=== PATIENT | female | born 1975 | race Caucasian/White ===

== ENCOUNTER → 2021-07-27 09:41 | Outpatient (BNVA) | payer OTHER, MEDICAID, SELFPAY | PROVIDERS: PCP Student in an Organized Health Care Education/Training Program; Visit Provider Internal Medicine Rheumatology | DX: M19.90 Unspecified osteoarthritis, unspecified site (principal); M79.7 Fibromyalgia; Z79.899 Other long term (current) drug therapy; Z11.59 Encounter for screening for other viral diseases; Z11.1 Encounter for screening for respiratory tuberculosis; Z82.61 Family history of arthritis; Z71.85 Encounter for immunization safety counseling; F17.200 Nicotine dependence, unspecified, uncomplicated | CPT/HCPCS: 99204 ==

== ENCOUNTER 2021-07-27 13:13 | Outpatient (CLI) | payer OTHER, MEDICAID, SELFPAY ==
--- NOTE | 2021-07-27 13:37 | XR_ITS ---
WS: [id number] Exam: XR chest 2V* [id number] Date/Time of Exam: 07/27/2021 1:42 PM Reason For Exam: Z79.899 - Other intermediate frame tender (current) drug therapy Findings: The lungs are clear and fully expanded. Costophrenic angles are sharp. No infiltrates. Bronchovascula r relief appears normal. Cardiac silhouette is unremarkable. Bony elements are intact. XR/XR chest 2V* [id number] IMPRESSION: Unremarkable chest radiograph.
--- NOTE | 2021-07-27 13:37 | XR_ITS ---
WS: [id number] Exam: XR hand RT min 3V* [id number] Date/Time of Exam: 07/27/2021 1:42 PM Reason For Exam: Z79.899 - Other long term acute care registered nurse (current) drug therapy Findings: No fractures, soft tissue swelling, or unusual calcifications are noted. The hand shows normal bony alignment. There is no irregularity of the bony architecture. XR/XR hand RT min 3V* [id number] IMPRESSION: Normal right hand.
--- NOTE | 2021-07-27 13:37 | XR_ITS ---
WS: [id number] Exam: XR foot LT min 3V* [id number] Date/Time of Exam: 07/27/2021 1:42 PM Reason For Exam: Z79.899 - Other care home (current) drug therapy Findings: The foot was examined in multiple views and reveals no fractures or displacements of bone. No bony a nomalies are noted. The bony elements are in adequate alignment. The joint spaces are smooth and eq uidistant. XR/XR foot LT min 3V* [id number] IMPRESSION: Negative left foot.
--- NOTE | 2021-07-27 13:37 | XR_ITS ---
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 No soft tissue foreign bodies are seen. There are mild degenerative changes in the midfoot joints. XR/XR foot RT min 3V* [id number] IMPRESSION: 1. No fracture or dislocation. Minimal degenerative changes.
--- NOTE | 2021-07-27 13:37 | XR_ITS ---
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 The hand shows normal bony alignment. There is no irregularity of the bony architecture. XR/XR hand LT min 3V* [id number] IMPRESSION: Normal left hand.
[2021-07-27 14:33] LABS: Basophils # 0.1 10^3/uL (0.0-0.1); Basophils % 0.7 %; Eosinophils # 0.5 10^3/uL (0.0-0.8); Eosinophils % 6.4 %; Hematocrit 43.5 % (37.0-47.0); Lymphocytes # 1.8 10^3/uL (0.8-4.8); Lymphocytes % 24.9 %; Mean Corpuscular HGB Conc 32.2 g/dL (30.0-36.0); Mean Corpuscular Hemoglobin 30.7 pg (28.0-34.0); Mean Corpuscular Volume 95.4 fl (81-99); Mean Platelet Volume 10.9 fL (7.4-10.4); Monocytes # 0.6 10^3/uL (0.2-0.9); Monocytes % 7.6 %; Neutrophils # 4.34 10^3/uL (1.8-7.7); Neutrophils % 60.1 %; Nucleated Red Blood Cells % 0 %; Platelet Count 280 10^3/cmm (130-400); Red Blood Count 4.56 10^6/uL (4.1-5.3); White Blood Count 7.2 10^3/uL (4.0-10.0)
[2021-07-27 15:22] LABS: Hepatitis B Core AB, Total Non-Reactive (Nonreactive); Hepatitis B Surface Antigen Non-Reactive (Nonreactive)
[2021-07-27 15:58] LABS: Rheumatoid Factor < 10.0 IU/mL (0-14)
[2021-07-27 16:40] LABS: Hepatitis C Virus Antibody Non-Reactive (Nonreactive)
[2021-07-27 17:07] LABS: Alanine Aminotransferase 22 U/L (0-33); Albumin Level 4.2 g/dL (3.5-5.2); Alkaline Phosphatase 107 IU/L (35-105); Aspartate Amino Transferase 19 U/L (0-32); C Reactive Protein 0.8 mg/L (0.0-4.9); Globulin 2.8 g/dL (1.3-4.6); Glomerular Filtration Rate 53.2 mL/min (90-130); Total Bilirubin 0.2 mg/dL (0.15-1.2)
[2021-07-27 17:22] LABS: 25 Hydroxy Vitamin D 32 ng/mL (30-100)
[2021-07-28 14:32] LABS: Cyclic Citrullinated Peptide <16 UNITS
[2021-07-28 14:47] LABS: Erythrocyte Sedimentation Rate 6 mm/hr (0-15)
[2021-07-29 11:58] LABS: Anti-Nuclear Antibody Pattern Nuclear, Centromere; Anti-Nuclear Antibody Screen POSITIVE (NEGATIVE)
[2021-07-29 14:28] LABS: Quantiferon Mitogen 8.33 IU/mL; Quantiferon Nil 0.02 IU/mL; Quantiferon Plus TB1 0.19 IU/mL; Quantiferon TB Gold NEGATIVE (NEGATIVE)
== END 2021-07-27 13:14 | disposition home or self-care (01) ==
LOC: RAD 13:30
PROVIDERS: PCP Student in an Organized Health Care Education/Training Program; Visit Provider Internal Medicine Rheumatology
DX: M19.90 Unspecified osteoarthritis, unspecified site (principal); M79.7 Fibromyalgia; Z79.899 Other long term (current) drug therapy; Z11.59 Encounter for screening for other viral diseases; Z11.1 Encounter for screening for respiratory tuberculosis
CPT/HCPCS: 36415; 71046; 73130; 73630; 80076; 82306; 82565; 85025; 85651; 86038; 86140; 86200; 86431; 86480; 86704; 86803; 87340

== ENCOUNTER → 2021-08-04 11:20 | Outpatient (BNVA) | payer OTHER, MEDICAID, SELFPAY | PROVIDERS: PCP Student in an Organized Health Care Education/Training Program; Referring Provider Student in an Organized Health Care Education/Training Program; Visit Provider Specialist | DX: R51.9 Headache, unspecified (principal); M79.7 Fibromyalgia; R55 Syncope and collapse; F43.10 Post-traumatic stress disorder, unspecified; F60.3 Borderline personality disorder; M19.90 Unspecified osteoarthritis, unspecified site; Z71.85 Encounter for immunization safety counseling; F17.200 Nicotine dependence, unspecified, uncomplicated | CPT/HCPCS: 99204; 99205 ==

== ENCOUNTER → 2021-08-23 13:44 | Outpatient (BNVA) | payer OTHER, MEDICAID, SELFPAY | PROVIDERS: PCP Student in an Organized Health Care Education/Training Program; Referring Provider Specialist; Visit Provider Specialist | DX: R55 Syncope and collapse (principal); F17.200 Nicotine dependence, unspecified, uncomplicated | CPT/HCPCS: 95816 ==

== ENCOUNTER → 2021-11-29 09:47 | Outpatient (BNVA) | payer OTHER, MEDICAID, SELFPAY | PROVIDERS: PCP Student in an Organized Health Care Education/Training Program; Visit Provider Internal Medicine Rheumatology | DX: M15.9 Polyosteoarthritis, unspecified (principal); M35.9 Systemic involvement of connective tissue, unspecified; Z79.899 Other long term (current) drug therapy; R76.8 Other specified abnormal immunological findings in serum; M79.7 Fibromyalgia; Z71.85 Encounter for immunization safety counseling | CPT/HCPCS: 99214 ==

== ENCOUNTER 2021-11-29 10:40 | Outpatient (CLI) | payer OTHER, MEDICAID, SELFPAY ==
[2021-11-29 11:41] LABS: Basophils % 0.6 %; Eosinophils # 0.2 10^3/uL (0.0-0.8); Eosinophils % 2.6 %; Hematocrit 47.3 % (37.0-47.0); Hemoglobin 15.8 g/dL (11.5-15.3); Lymphocytes # 1.6 10^3/uL (0.8-4.8); Lymphocytes % 25.9 %; Mean Corpuscular HGB Conc 33.4 g/dL (30.0-36.0); Mean Corpuscular Hemoglobin 30.6 pg (28.0-34.0); Mean Corpuscular Volume 91.5 fl (81-99); Mean Platelet Volume 10.9 fL (7.4-10.4); Monocytes # 0.5 10^3/uL (0.2-0.9); Monocytes % 8.2 %; Neutrophils # 3.86 10^3/uL (1.8-7.7); Neutrophils % 62.2 %; Nucleated Red Blood Cells % 0 %; Platelet Count 282 10^3/cmm (130-400); Red Blood Count 5.17 10^6/uL (4.1-5.3); Red Cell Distribution Width 11.9 % (12.1-15.1); White Blood Count 6.2 10^3/uL (4.0-10.0)
[2021-11-29 11:47] LABS: Erythrocyte Sedimentation Rate 13 mm/hr (0-15)
[2021-11-29 12:07] LABS: Alanine Aminotransferase 33 U/L (0-33); Albumin Level 4.3 g/dL (3.5-5.2); Alkaline Phosphatase 118 IU/L (35-105); Aspartate Amino Transferase 26 U/L (0-32); C Reactive Protein 7.3 mg/L (0.0-4.9); Globulin 3.7 g/dL (1.3-4.6); Glomerular Filtration Rate 66.8 mL/min (90-130); Total Bilirubin 0.3 mg/dL (0.15-1.2)
[2021-11-29 12:36] LABS: Bacteria Urine 2+ /hpf; Bilirubin Urine Neg (Negative); Blood Urine Neg (Negative); Glucose Urine UA Norm (Normal); Ketones Urine Negative (Negative); Leukocyte Esterase Urine Negative (Negative); Mucus Urine 4+ /hpf; Nitrate Urine Negative (Negative); Protein Urine Neg (Negative); RBC Urine RARE /hpf (0-2); Squamous Epithelial Cell Urine 15-25 /hpf (0-5); Urine Appearance Clear (CLEAR); Urine Color Yellow (Yellow); Urobilinogen Urine Neg (Negative); WBC Urine RARE /hpf (0-5); pH Urine 5 (5-7)
[2021-11-29 12:37] LABS: Add Urine Culture? No; Amorphous Sediment Urine 1+ /hpf
[2021-11-29 12:45] LABS: Urine Creatinine 300 mg/dL (28-217); Urine Protein Random 18 mg/dL
[2021-11-30 12:27] LABS: COMPLEMENT COMPONENT C3C 136 mg/dL (83-193); COMPLEMENT COMPONENT C4C 24 mg/dL (15-57)
[2021-11-30 14:33] LABS: COMPLEMENT, TOTAL (CH50) >60 U/mL (31-60)
[2021-12-02 13:27] LABS: CENTROMERE B ANTIBODY >8.0 POS AI (<1.0 NEG); JO-1 ANTIBODY <1.0 NEG AI (<1.0 NEG); RNP ANTIBODY <1.0 NEG AI (<1.0 NEG); SCL-70 ANTIBODY <1.0 NEG AI (<1.0 NEG); SJOGREN'S ANTIBODY (SS-A) <1.0 NEG AI (<1.0 NEG); SM ANTIBODY <1.0 NEG AI (<1.0 NEG); SS-B <1.0 NEG AI (<1.0 NEG)
[2021-12-02 14:43] LABS: THYROID PEROXIDASE ANTIBODIES 1 IU/mL (<9)
[2021-12-03 11:33] LABS: DNA AB (DS) CRITHIDIA,IFA NEGATIVE (NEGATIVE)
[2021-12-05 11:27] LABS: ANA PATTERN Nuclear, Centromere; ANA SCREEN, IFA POSITIVE (NEGATIVE)
== END 2021-11-29 10:41 | disposition home or self-care (01) ==
LOC: LAB 10:47
PROVIDERS: PCP Student in an Organized Health Care Education/Training Program; Visit Provider Internal Medicine Rheumatology
DX: M19.90 Unspecified osteoarthritis, unspecified site (principal); R76.8 Other specified abnormal immunological findings in serum; Z79.899 Other long term (current) drug therapy
CPT/HCPCS: 80076; 81001; 82565; 82570; 84156; 85025; 85651; 86140; 86160; 86162; 86235; 86255; 86376

== ENCOUNTER 2022-03-07 13:51 | Outpatient (CLI) | payer OTHER, MEDICAID, SELFPAY ==
--- NOTE | 2022-03-07 14:04 | USCV_ITS ---
Alice Pulliam Age: 46 Gender: F : 1975 Exam Date: 03/07/2022 14:12 Ordering Phys: Destinee Glass MD Technologist: LYNNE Exam Location: [facility] – [place] Indication: History of cardiac disorder Risk Factors: Previous Vascular Surgery: Right Brachial BP: / Left Brachial BP: / Right Left Velocity (cm/s) Spectral Plaque Velocity (cm/s) Spectral Plaque Syst/Diast Broadening Syst/Diast Broadening 109.20/33.10 Prox CCA 89.70 / 25.60 79.40/ 28.70 Mid CCA 92.80 / 26.40 73.90/ 23.20 Distal CCA 85.40 / 31.60 67.00/ 25.60 Prox ICA 52.20 / 22.60 77.90/ 31.50 Mid ICA 79.10 / 35.40 74.30/ 29.90 Distal ICA 97.30 / 41.40 94.60 ECA 91.40 0.98 ICA/CCA 1.05 Antegrade Vertebral Antegrade 48.60/ 15.80 cm/s 50.00/ 21.00 cm/s Tri Subclavian Tri 85.40 87.00 CONCLUSIONS Right ICA stenosis <50%. Left ICA stenosis <50%. Normal antegrade Doppler flow noted in the right vertebral artery. Normal antegrade Doppler flow noted in the left vertebral artery. Emory Finn MD (Electronically Signed) Final Date: 07 March 2022 16:20 S
== END 2022-03-07 13:52 | disposition home or self-care (01) ==
LOC: RAD 13:52
PROVIDERS: PCP Student in an Organized Health Care Education/Training Program; Visit Provider Specialist
DX: Z86.79 Personal history of other diseases of the circulatory system (principal)
CPT/HCPCS: 93880

== ENCOUNTER → 2022-03-13 11:53 | Outpatient (BNVA) | payer OTHER, MEDICAID, SELFPAY | PROVIDERS: PCP Student in an Organized Health Care Education/Training Program; Visit Provider Internal Medicine Rheumatology | DX: M19.90 Unspecified osteoarthritis, unspecified site (principal); R76.8 Other specified abnormal immunological findings in serum; Z71.85 Encounter for immunization safety counseling; Z79.899 Other long term (current) drug therapy | CPT/HCPCS: 36415; 80076; 82565; 85025; 86140 ==

== ENCOUNTER → 2022-12-26 10:48 | Outpatient (BNVA) | payer OTHER, MEDICAID, SELFPAY | PROVIDERS: PCP Student in an Organized Health Care Education/Training Program; Visit Provider Internal Medicine Rheumatology | DX: Z79.899 Other long term (current) drug therapy (principal); M34.9 Systemic sclerosis, unspecified | CPT/HCPCS: 36415; 85025 ==

== ENCOUNTER → 2023-03-20 11:07 | Outpatient (BNVA) | payer OTHER, MEDICAID, SELFPAY | PROVIDERS: PCP Student in an Organized Health Care Education/Training Program; Visit Provider Internal Medicine Rheumatology | DX: Z11.59 Encounter for screening for other viral diseases (principal); Z79.899 Other long term (current) drug therapy; M34.9 Systemic sclerosis, unspecified | CPT/HCPCS: 36415; 80076; 82565; 85025; 86140; 86480 ==

== ENCOUNTER → 2023-10-24 10:24 | Outpatient (BNVA) | payer OTHER, MEDICAID, SELFPAY | PROVIDERS: PCP Student in an Organized Health Care Education/Training Program; Visit Provider Internal Medicine Rheumatology | DX: Z79.899 Other long term (current) drug therapy (principal); M34.9 Systemic sclerosis, unspecified | CPT/HCPCS: 36415; 80076; 82565; 85025; 86140 ==

== ENCOUNTER → 2024-01-30 11:20 | Outpatient (BNVA) | payer OTHER, MEDICAID, SELFPAY | PROVIDERS: PCP Student in an Organized Health Care Education/Training Program; Visit Provider Internal Medicine Rheumatology | DX: M34.9 Systemic sclerosis, unspecified (principal); M19.90 Unspecified osteoarthritis, unspecified site; Z79.899 Other long term (current) drug therapy | CPT/HCPCS: 36415; 80076; 82565; 85025; 86140 ==

== ENCOUNTER 2024-07-15 14:58 | Outpatient (CLI) | payer OTHER, MEDICAID, SELFPAY ==
--- NOTE | 2024-07-15 15:10 | MR_ITS ---
WS: [id number] MRI HEAD WITHOUT CONTRAST TECHNIQUE: Sagittal T1, T2 axial, T2 axial FLAIR, axial and coronal T1 images, axial susceptibility w eighted imaging, axial diffusion weighted images, and coronal T2 images were obtained. 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 FINDINGS: No evidence of restricted diffusion to suggest acute ischemia. Mild supratentorial white matter bello es nonspecific in a patient of this age but can be seen with hypertension, diabetes, small vessel jean nges, and migraine headaches. No significant parenchymal volume loss. Normal posterior fossa. Normal vascular flow voids at the skull base. No extra-axial fluid collections. No evidence of mass or mass effect. No hemosiderin on susceptibly weighted images. Normal optic chias m and pituitary infundibulum. Temporal lobes and hippocampal formations are normal in appearance. Paranasal sinuses are well aerated. Mastoid air cells are well aerated. Normal posterior nasopharynx. MR/MR head wo con* [id number] IMPRESSION: 1. No evidence of restricted diffusion to suggest acute ischemia. 2. Mild supratentorial white matter changes nonspecific in a patient this age but can be seen as hypertension, diabetes, migraine headaches, and small vessel changes. 3. No significant parenchymal volume loss. 4. No hemosiderin on the susceptibly weighted images.
== END 2024-07-15 14:59 | disposition home or self-care (01) ==
LOC: RAD 14:58
PROVIDERS: PCP Student in an Organized Health Care Education/Training Program; Visit Provider Specialist
DX: M34.9 Systemic sclerosis, unspecified (principal); G43.711 Chronic migraine without aura, intractable, with status migrainosus
CPT/HCPCS: 70551

== ENCOUNTER → 2024-07-16 12:51 | Outpatient (BNVA) | payer OTHER, MEDICAID, SELFPAY | PROVIDERS: PCP Student in an Organized Health Care Education/Training Program; Visit Provider Internal Medicine Rheumatology | DX: M34.9 Systemic sclerosis, unspecified (principal); M35.9 Systemic involvement of connective tissue, unspecified; Z79.899 Other long term (current) drug therapy | CPT/HCPCS: 36415; 80076; 82565; 85025; 85651; 86140 ==

== ENCOUNTER → 2024-12-24 12:08 | Outpatient (BNVA) | payer OTHER, MEDICAID, SELFPAY | PROVIDERS: PCP Student in an Organized Health Care Education/Training Program; Visit Provider Internal Medicine Rheumatology | DX: M06.041 Rheumatoid arthritis without rheumatoid factor, right hand (principal); M06.042 Rheumatoid arthritis without rheumatoid factor, left hand; Z79.899 Other long term (current) drug therapy | CPT/HCPCS: 36415; 80076; 82565; 85025; 85651; 86140 ==